=== PATIENT | male | born 1965 | race Caucasian/White ===

== ENCOUNTER 2016-10-20 08:18 | Emergency (ER) | payer MEDICAID, OTHER ==
[2016-10-20] MEDS ORDERED: METFORMIN HCL1000 M2 PO (08:46)
[2016-10-20] MEDS ORDERED: GLYBURIDE5 M1 PO (08:47)
[2016-10-20] MEDS ORDERED: PRINIVIL10 M1 PO (08:47)
[2016-10-20] MEDS ORDERED: ALLOPURINOL300 M1 PO (08:47)
[2016-10-20] MEDS ORDERED: ATORVASTATIN CA40 M1 PO (08:47)
[2016-10-20] MEDS ORDERED: ZANTAC150 M1 PO (08:47)
[2016-10-20] MEDS ORDERED: DILAUDID2 M1 PO (08:48)
[2016-10-20] MEDS ORDERED: CELEXA20 M2 PO (08:48)
[2016-10-20] MEDS ORDERED: CYCLOBENZAPRINE5 M1 PO (08:48)
[2016-10-20] MEDS ORDERED: MULTIVITAMINS1 EAC6 PO (08:49)
[2016-10-20] MEDS ORDERED: KRILL OIL500 M1 PO (08:49)
[2017-04-27] MEDS ORDERED: ASPIRIN EC81 MG PO (22:16)
[2017-04-27] MEDS ORDERED: INSULIN (22:19)
== END 2016-10-20 10:16 ==
LOC: EDMED 08:18
DX: M54.5 Low back pain (principal); G89.29 Other chronic pain; E11.9 Type 2 diabetes mellitus without complications; K21.9 Gastro-esophageal reflux disease without esophagitis; Z90.49 Acquired absence of other specified parts of digestive tract; Z79.899 Other long term (current) drug therapy
CPT/HCPCS: J1170

== ENCOUNTER 2016-11-03 11:01 | Emergency (ER) | payer MEDICAID, OTHER ==
[~2016-11-03 11:01] MED LIST: ALLOPURINOL300 M1 PO; ATORVASTATIN CA40 M1 PO; CELEXA20 M2 PO; CYCLOBENZAPRINE5 M1 PO; DILAUDID2 M1 PO; GLYBURIDE5 M1 PO; KRILL OIL500 M1 PO; METFORMIN HCL1000 M2 PO; MULTIVITAMINS1 EAC6 PO; PRINIVIL10 M1 PO; ZANTAC150 M1 PO
[2017-04-27] MEDS ORDERED: ASPIRIN EC81 MG PO (22:16)
[2017-04-27] MEDS ORDERED: INSULIN (22:19)
== END 2016-11-03 13:04 ==
LOC: EDMED 11:01
DX: G89.29 Other chronic pain (principal); M54.5 Low back pain; E11.9 Type 2 diabetes mellitus without complications
CPT/HCPCS: J1170